=== PATIENT | male | born 1965 | race African-American/Black ===

== ENCOUNTER 2020-06-23 14:40 | Outpatient (REF) | payer MEDICAID, SELFPAY ==
--- NOTE | 2020-06-23 | PFT_ITS ---
FLOWS: FEV1 of 74% of predicted at 2.35 L. FVC 75% of predicted at 3 L. FEV1 to FVC ratio of 0.78. Positive bronchodilator response. LUNG VOLUMES: Total lung capacity 85% of predicted at 5.66 L. Residual volume 164% of predicted at 3.36 L. Slow vital capacity 42% of predicted at 2.30 L. Expiratory reserve volume 28% of predicted at 0.48 L. Diffusion capacity is normal. IMPRESSION: Severe obstructive ventilatory defect with positive bronchodilator response consistent with underlying asthma. MD SUJATA Ho/MODL / [id number]
== END 2020-06-23 14:41 | disposition home or self-care (01) ==
LOC: HO.RESP 14:40
PROVIDERS: PCP Registered Nurse Community Health; Visit Provider Registered Nurse Community Health
DX: J45.40 Moderate persistent asthma, uncomplicated (principal)
CPT/HCPCS: 94060; 94727; 94729

== ENCOUNTER 2021-01-26 10:52 | Outpatient (REF) | payer MEDICAID, SELFPAY ==
--- NOTE | ~2021-01-26 | XR_ITS ---
EXAMINATION: XR LUMBOSACRAL SPINE WITH OBLIQUES CLINICAL INFORMATION: Pain with sciatica. COMPARISON: None TECHNIQUE: 5 images are submitted including oblique imaging. FINDINGS: No listhesis or compression injury. There is some early loss of disc height at L5-S1. The vertebral heights are well preserved. No significant scoliosis The SI joints are grossly patent. The oblique imaging is showing no convincing evidence for spondylolysis. There is evidence of degenerative changes in the posterior elements at L4-L5 and L5-S1. XR/XR lumbar spine 4V min IMPRESSION: Mild degeneration most noted at L5-S1 as described. No listhesis or compression injury.
== END 2021-01-26 10:53 | disposition home or self-care (01) ==
LOC: HO.XRAY 10:52
PROVIDERS: PCP Registered Nurse Community Health; Visit Provider Registered Nurse Community Health
DX: M54.40 Lumbago with sciatica, unspecified side (principal)
CPT/HCPCS: 72110